=== PATIENT | male | born 1975 | race Caucasian/White ===

== ENCOUNTER 2021-02-25 06:34 | Day surgery (SDCO) | payer OTHER ==
[~2021-02-25] VITALS: Ht 188 cm; Wt 90.9 kg
[~2021-02-25 06:34] MED LIST: CYCLOBENZAPRINE10 MG PO; HYDROCODON-ACE1 EAC2 PO; NEURONTIN300 MG PO
[2021-02-25] MEDS ORDERED: PERCOCET 5-3251 EACH PO (06:46)
[2021-02-25 16:14] LABS: AMPHETAMINES NEGATIVE (NEGATIVE); BARBITURATES NEGATIVE (NEGATIVE); ECSTASY (MDMA) NEGATIVE (NEGATIVE); MARIJUANA (THC) NEGATIVE (NEGATIVE); METHADONE NEGATIVE (NEGATIVE); OPIATES NEGATIVE (NEGATIVE); OXYCODONE NEGATIVE (NEGATIVE)
[2021-02-25 16:17] LABS: BILIRUBIN NEGATIVE (NEGATIVE); BLOOD NEGATIVE Ery/uL (NEGATIVE); CLARITY CLEAR (CLEAR); COLOR YELLOW (YELLOW); GLUCOSE (U) NORMAL (NORMAL); LEUKOCYTES NEGATIVE Leu/uL (NEGATIVE); NITRITE NEGATIVE (NEGATIVE); PROTEIN NEGATIVE (NEGATIVE); pH 7.5 (5.0-9.0)
[2021-02-25 16:35] LABS: SQUAMOUS EPITHELIAL CELLS RARE
[2021-02-25 17:03] LABS: BASOPHIL 0.1 % (0-2); EOSINOPHIL 0 % (0-5); HCT 46.5 % (42.0-52.0); HGB 15.4 g/dl (13.2-18.0); LYMPHOCYTE 6.8 % (15-48); MCH 31.1 pg (25.0-31.0); MCHC 33.1 g/dL (32.0-36.0); MCV 93.9 fL (78.0-100.0); MONOCYTE 1.5 % (0-12); MPV 11.2 fL (6.0-9.5); NEUTROPHIL 91.4 % (41-80); PLT 216 K/uL (150-400); RBC 4.95 M/uL (4.70-6.00); RDW 12.8 % (11.5-14.0); WBC 8.1 K/uL (4.0-10.5)
[2021-02-25 17:08] LABS: INR 1.03 (0.9-1.2); PROTHROMBIN TIME 12.9 SECONDS (11.8-13.4); PTT 27.2 SECONDS (24.4-34.7)
[2021-02-25 17:21] LABS: ALBUMIN 3.6 g/dL (3.4-5.0); BILIRUBIN - TOTAL 0.5 mg/dL (0.2-1.0); BUN/CREAT RATIO (CALC) 17.9 RATIO; CREATININE 0.78 mg/dL (0.67-1.17); FT4 (FREE T4) 0.8 ng/dL (0.76-1.46); GLOBULIN (CALCULATION) 3.3 g/dL; POTASSIUM 4.3 mmol/L (3.5-5.1); TOTAL PROTEIN 6.9 g/dL (6.4-8.2)
[2021-02-25 17:24] LABS: BAND 1 % (0-10); LYMPHOCYTE(M) 7 % (15-48); NEUTROPHILS(M) 92 % (41-80); NRBC 0; PLATELET ESTIMATE NORMAL; PLATELET MORPHOLOGY NORMAL; TOTAL CELL COUNT 100
[2021-02-26] MEDS ORDERED: CARDIZEM60 MG PO (12:00)
[2021-02-26] MEDS ORDERED: ASPIRIN EC81 MG PO (12:00)
== END 2021-02-26 12:43 | disposition home or self-care (01) ==
LOC: FAS 06:34 → FTCU 12:24
PROVIDERS: ADMIT Internal Medicine
DX: G56.03 Carpal tunnel syndrome, bilateral upper limbs (principal); I48.0 Paroxysmal atrial fibrillation; G89.4 Chronic pain syndrome; F17.210 Nicotine dependence, cigarettes, uncomplicated
CPT/HCPCS: 36415; 71046; 80053; 80305; 81001; 84439; 84443; 84484; 85610; 85730; 93005; G0378; J1100; J1170; J1885; J2250; J2405; J2704; J3010; J7120

== ENCOUNTER 2021-04-30 13:49 | Emergency (ER) | payer OTHER ==
[~2021-04-30 13:49] MED LIST changes: +ASPIRIN EC81 MG PO; +CARDIZEM60 MG PO; +PERCOCET 5-3251 EACH PO
[2021-04-30 14:19] LABS: BASOPHIL 0.7 % (0-2); EOSINOPHIL 2.5 % (0-5); HGB 13.4 g/dl (13.2-18.0); LYMPHOCYTE 39.7 % (15-48); MCH 31.6 pg (25.0-31.0); MCHC 33.5 g/dL (32.0-36.0); MCV 94.3 fL (78.0-100.0); MONOCYTE 9.7 % (0-12); MPV 10.7 fL (6.0-9.5); NEUTROPHIL 47.2 % (41-80); NRBC 0; PLT 218 K/uL (150-400); RBC 4.24 M/uL (4.70-6.00); RDW 13.3 % (11.5-14.0); WBC 5.6 K/uL (4.0-10.5)
[2021-04-30 14:23] LABS: INR 1.02 (0.9-1.2); PROTHROMBIN TIME 12.8 SECONDS (11.8-13.4)
[2021-04-30 14:30] LABS: ALBUMIN 3.7 g/dL (3.4-5.0); BILIRUBIN - TOTAL 0.4 mg/dL (0.2-1.0); BUN/CREAT RATIO (CALC) 19.1 RATIO; CREATININE 0.94 mg/dL (0.67-1.17); GLOBULIN (CALCULATION) 3.2 g/dL; POTASSIUM 3.8 mmol/L (3.5-5.1); TOTAL PROTEIN 6.9 g/dL (6.4-8.2)
[2021-04-30] MEDS ORDERED: MEDROL 4MG DOSEP4 MG PO (18:08)
== END 2021-04-30 18:17 | disposition home or self-care (01) ==
LOC: FER 13:49
PROVIDERS: Emergency Medicine
DX: M54.12 Radiculopathy, cervical region (principal); R07.89 Other chest pain; Z79.899 Other long term (current) drug therapy
CPT/HCPCS: 36415; 71045; 80053; 84484; 85025; 85610; 85730; 93005